=== PATIENT | male | born 1990 | race American Indian/Alaskan Native ===

== ENCOUNTER 2016-10-21 23:47 | Emergency (ER) | payer SELFPAY ==
[2016-10-21 23:48] VITALS: BMI 22.5
[2016-10-21 23:58] VITALS: RESP 18; TEMP 98.6
[2016-10-22] MEDS ORDERED: TDAP Vaccine 0.5 mL Syr IM ONE (00:03)
--- NOTE | 2016-10-22 00:17 | ED PDOC ---
Arrival/HPI - General Historian: Patient <Vaibhav Weems - Last Filed: 10/22/16 01:08> <Pranav Rodríguez - Last Filed: 10/22/16 01:11> - General Chief Complaint: Abnormal Skin Integrity Time Seen by Provider: 10/22/16 00:01 - History of Present Illness Narrative History of Present Illness (Text): 10/22/16 00:04 26 y/o male, no significant pmh, nkda, last tetanus doesn't remember, c/o rt. facial laceration x 2 hours. Pt. stated that he was playing basketball, elbow on the rt. facial cheek region, been bleeding with pain along with swelling, no head or neck injury, no fever or chills, no headache or night sweat, no dizziness, no rash, no other medical or psychological complaints. (Vaibhav Weems) Past Medical History - Provider Review Nursing Documentation Reviewed: Yes - Infectious Disease Hx of Infectious Diseases: None - Tetanus Immunization Tetanus Immunization: Unknown - Past Medical History Past Medical History: No Previous - Cardiac Hx Cardiac Disorders: No - Pulmonary Hx Respiratory Disorders: No - Musculoskeletal/Rheumatological Hx Musculoskeletal Disorders: Yes (ACL tear) - Psychiatric Hx Depression: No Hx Emotional Abuse: No Hx Physical Abuse: No Hx Substance Use: Yes - Past Surgical History Past Surgical History: No Previous - Surgical History Hx Musculoskeletal Surgery: Yes (left leg) - Anesthesia Hx Anesthesia: Yes Hx Anesthesia Reactions: No Hx Malignant Hyperthermia: No - Suicidal Assessment Feels Threatened In Home Enviroment: No <Vaibhav Weems - Last Filed: 10/22/16 01:08> Family/Social History - Physician Review Nursing Documentation Reviewed: Yes Family/Social History: Unknown Family HX Smoking Status: Never Smoked Hx Alcohol Use: Yes Hx Substance Use: Yes Substance used: Marijuana Hx Substance Use Treatment: No <Vaibhav Weems - Last Filed: 10/22/16 01:08> Allergies/Home Meds <Vaibhav Weems - Last Filed: 10/22/16 01:08> <Pranav Rodríguez - Last Filed: 10/22/16 01:11> Allergies/Adverse Reactions: Allergies No Known Allergies Allergy (Verified 05/27/16 08:00) Review of Systems - Review of Systems Constitutional: absent: Fatigue, Fevers Eyes: absent: Vision Changes ENT: absent: Hearing Changes Respiratory: absent: SOB, Cough Cardiovascular: absent: Chest Pain Gastrointestinal: absent: Abdominal Pain, Nausea, Vomiting Musculoskeletal: absent: Arthralgias, Back Pain, Neck Pain Skin: Laceration. absent: Rash, Pruritis, Skin Lesions, Abscess, Ulcer, Cellulitis Neurological: absent: Headache, Dizziness, Focal Weakness <Vaibhav Weems Q - Last Filed: 10/22/16 01:08> Physical Exam Vital Signs Reviewed: Yes Temperature: Afebrile Blood Pressure: Normal Pulse: Regular Respiratory Rate: Normal Appearance: Positive for: Well-Appearing, Non-Toxic, Comfortable Pain Distress: None Mental Status: Positive for: Alert and Oriented X 3 - Systems Exam Head: Present: Atraumatic, Normocephalic, Other (+ttp and swelling with ecchymosis on the rt. facial cheek along with approx. 3cm superficial to intermediate depth laceration . ). No: Tenderness, Contusion, Swelling, Ecchymosis, Abrasion, Laceration Pupils: Present: PERRL Extroacular Muscles: Present: EOMI Conjunctiva: Present: Normal Mouth: Present: Moist Mucous Membranes, Other (multiple dental caries) Nose (External): Present: Atraumatic. No: Abrasion, Contusion Nose (Internal): Present: Normal Inspection, No Active Bleeding. No: Rhinorrhea , Septal Hematoma, Epistaxis Neck: Present: Normal Range of Motion, Trachea Midline. No: MIDLINE TENDERNESS , Paraspinal Tenderness, Lymphadenopathy Respiratory/Chest: Present: Clear to Auscultation, Good Air Exchange. No: Respiratory Distress, Accessory Muscle Use Cardiovascular: Present: Regular Rate and Rhythm, Normal S1, S2. No: Murmurs Abdomen: Present: Normal Bowel Sounds. No: Tenderness, Distention, Peritoneal Signs Back: Present: Normal Inspection Upper Extremity: Present: Normal Inspection. No: Cyanosis, Edema Lower Extremity: Present: Normal Inspection. No: Edema Neurological: Present: GCS=15, Speech Normal, Motor Func Grossly Intact, Gait Normal, Memory Normal Skin: Present: Warm, Dry, Normal Color. No: Rashes Psychiatric: Present: Alert, Oriented x 3, Normal Insight, Normal Concentration <Vaibhav Weems Q - Last Filed: 10/22/16 01:08> Medical Decision Making - RAD Interpretation Section 8 Property Manager: Radiologist <Vaibhav Weems Q - Last Filed: 10/22/16 01:08> <Pranav Rodríguez - Last Filed: 10/22/16 01:11> ED Course and Treatment: 10/22/16 00:19 -CT facial -tetanus/keflex -sensation intact, motor 5/5, wound irrigate with normal saline 1000cc, clean with betadine, 1% lidocaine with 0.5cc injected locally, 6-0 nylon and made 8 continuous sutures, hemostasis obtained, bacitracin and gauze dressing, sensation intact. Discharge home with bacitracin oinment, augmentin, take tylenol or motrin for pain, sutures need to be removed by day 5-6, keep the dressing dry and clean for 2 days, follow up with your own pmd within 2 days, return to the ER for any new or worsening signs or symptoms. (Vaibhav Weems) - RAD Interpretation Radiology Orders: 10/22/16 00:03 MAXILLOFACIAL W/O CONTRAST [CT] Stat FINDINGS: Bones/joints: No acute fracture. Soft tissues: Unremarkable. Orbits: Unremarkable. Sinuses: Unremarkable. No air-fluid levels. There is periapical lucency adjacent to the central and lateral mandibular incisor tooth. Periapical lucency also noted adjacent to the RIGHT posterior molar mandibular and LEFT posterior maxillary tooth. These are concerning for dental infections. Correlate with dental exam. IMPRESSION: Negative for fracture. There is periapical lucency adjacent to the central and lateral mandibular incisor tooth. Periapical lucency also noted adjacent to the RIGHT posterior molar mandibular and LEFT posterior maxillary tooth. These are concerning for dental infections. Correlate with dental exam. Thank you for allowing us to participate in the care of your patient. Dictated and Authenticated by: Deborah Rich MD 10/22/2016 1:00 AM Eastern Time ([place] & [place]) (Vaibhav Weems) - Medication Orders Current Medication Orders: Discontinued Medications Cephalexin Monohydrate (Keflex) 500 mg PO STAT STA PRN Reason: Protocol Stop: 10/22/16 00:04 Last Admin: 10/22/16 00:15 Dose: 500 mg Lidocaine HCl (Lidocaine 1% (20ml)) Confirm Administered Dose 20 ml .ROUTE .STK- MED ONE Stop: 10/22/16 00:48 Tetanus/Reduced Diphtheria/Acell Pertussis (Boostrix Vaccine Inj) 0.5 ml IM .ONCE ONE Stop: 10/22/16 00:04 Last Admin: 10/22/16 00:15 Dose: 0.5 ml - PA / CONTROL SYSTEMS DRAFTING OFFICER / Resident Statement DONAVON has reviewed & agrees with the documentation as recorded. <Vaibhav Weems - Last Filed: 10/22/16 01:08> - PA / CONTROL SYSTEMS DRAFTING OFFICER / Resident Statement DONAVON has reviewed & agrees with the documentation as recorded. <Pranav Rodríguez - Last Filed: 10/22/16 01:11> Disposition/Present on Arrival - Present on Arrival Any Indicators Present on Arrival: No History of DVT/PE: No History of Uncontrolled Diabetes: No Urinary Catheter: No History of Decub. Ulcer: No History Surgical Site Infection Following: None - Disposition Have Diagnosis and Disposition been Completed?: Yes Disposition Time: 00:21 Patient Plan: Discharge <Vaibhav Weems - Last Filed: 10/22/16 01:08> <Pranav Rodríguez - Last Filed: 10/22/16 01:11> - Disposition Diagnosis: Facial contusion, Facial laceration, Dental caries Disposition: HOME/ ROUTINE Condition: GOOD Additional Instructions: Discharge home with bacitracin oinment, augmentin, take tylenol or motrin for pain, sutures need to be removed by day 5-6, keep the dressing dry and clean for 2 days, follow up with your own pmd within 2 days, return to the ER for any new or worsening signs or symptoms. Prescriptions: Amoxicillin/Clavulanate [Augmentin 875 MG-125 MG] 1 tab PO BID #14 tab Bacitracin Ointment [Bacitracin] 1 appful TOP BID #15 g Ibuprofen [Motrin Tab] 600 mg PO QID PRN #30 tab PRN Reason: Other Referrals: Wilbur Cummins, YESSY [Non-Staff] - [place] up [place] [facility] [place] [facility] [place] - Follow up with primary Forms: WORK NOTE
[2016-10-22] MEDS ORDERED: Lidocaine 1% Inj (20ml) ONE (00:47)
[2016-10-22 01:14] VITALS: BP 126/74; PULSE 62; O2SAT 100
--- NOTE | 2016-10-22 10:31 | CT ---
PROCEDURE: CT MAXILLOFACIAL BONES WITHOUT CONTRAST HISTORY: rt. facial injury COMPARISON: None TECHNIQUE: Contiguous axial CT images of the maxillofacial bones were obtained. Coronal and sagittal reformats were generated. Radiation dose: Total exam DLP = 896 mGy-cm. This CT exam was performed using one or more of the following dose reduction techniques: Automated exposure control, adjustment of the mA and/or kV according to patient size, and/or use of iterative reconstruction technique. FINDINGS: NASAL BONES: Unremarkable. ORBITS: Unremarkable. PARANASAL SINUSES/ MASTOIDS: Clear. MAXILLA: There is dental disease bilaterally with periapical lucencies. There is loss of the bony cortex on the left side posteriorly adjacent to a molar. MANDIBLE/ TEMPOROMANDIBULAR JOINTS: Unremarkable. SKULL BASE: Unremarkable. TEMPORAL BONES: Middle ears and mastoid grossly unremarkable. OTHER FINDINGS: There is deviation of the nasal septum to the left The report concurs with the preliminary [facility] report IMPRESSION: No acute fracture. Bilateral dental disease
== END 2016-10-22 01:16 | disposition home or self-care (01) ==
LOC: ED 23:47
DX: S01.411A Laceration without foreign body of right cheek and temporomandibular area, initial encounter (principal); W50.0XXA Accidental hit or strike by another person, initial encounter; Y93.67 Activity, basketball; K02.9 Dental caries, unspecified; Z23 Encounter for immunization